=== PATIENT | female | born 1995 | race Two or more races ===

== ENCOUNTER 2025-05-20 09:26 | Outpatient (CLI) | payer OTHER | END 2025-05-20 09:31 | disposition home or self-care (01) | LOC: PRENATAL 09:26 | PROVIDERS: ATTEND Obstetrics & Gynecology Maternal & Fetal Medicine | DX: O44.02 Complete placenta previa NOS or without hemorrhage, second trimester (principal); Z3A.20 20 weeks gestation of pregnancy ==

== ENCOUNTER 2025-07-10 08:46 | Outpatient (CLI) | payer OTHER | END 2025-07-10 08:47 | disposition home or self-care (01) | LOC: PRENATAL 08:46 | PROVIDERS: ATTEND Obstetrics & Gynecology Maternal & Fetal Medicine | DX: O26.842 Uterine size-date discrepancy, second trimester (principal); O44.02 Complete placenta previa NOS or without hemorrhage, second trimester; Z3A.26 26 weeks gestation of pregnancy ==